=== PATIENT | female | born 1995 | race African-American/Black ===

== ENCOUNTER 2021-03-30 17:59 | Emergency (ER) | payer OTHER ==
[2021-03-30 18:32] VITALS: BP 122/77; PULSE 77; TEMP 98.7; BMI 24.3
[2021-03-30] MEDS ORDERED: LEVONORGESTREL 1.5 MG TABLET (PLAN B ONE-STEP) PO ×2 (18:43→19:33)
[2021-03-30 19:07] LABS: BASO % 0.8 % (0-2.0); EOS % 5.6 % (0-4.5); HEMATOCRIT 38.2 % (32.4-45.2); HEMOGLOBIN 12.5 GM/dL (10.7-15.3); LYMPH % 16.3 % (8-40); MCH 28.5 pg (25.7-33.7); MCHC 32.7 g/dl (32.0-36.0); MEAN CELL VOLUME 86.9 fl (80-96); MEAN PLT VOLUME 8.1 fl (7.5-11.1); NEUT % 68.3 % (42.8-82.8); PLATELET COUNT 273 K/MM3 (134-434); RDW 14.4 % (11.6-15.6); WHITE BLOOD COUNT 5.9 K/mm3 (4.0-10.0)
[2021-03-30 19:09] LABS: PH,URINE 8.5 (5.0-8.0); URINE APPEARANCE CLEAR; URINE BILIRUBIN NEGATIVE (NEGATIVE); URINE COLOR YELLOW; URINE GLUCOSE (UA) NEGATIVE (NEGATIVE); URINE KETONE TRACE (NEGATIVE); URINE LEUK ESTERASE NEGATIVE (NEGATIVE); URINE NITRITE NEGATIVE (NEGATIVE); URINE PROTEIN NEGATIVE (NEGATIVE)
[2021-03-30 19:12] LABS: HCG,QUALITATIVE URINE Negative
[2021-03-30 19:32] LABS: CALCIUM 9.1 mg/dL (8.5-10.1)
[2021-03-30 19:37] LABS: BILIRUBIN,TOTAL 0.3 mg/dL (0.2-1); TOT PROT 7.4 g/dl (6.4-8.2)
[2021-04-01 00:39] LABS: HIV INTERPRETATION NEGATIVE (NEGATIVE)
== END 2021-03-30 20:17 | disposition home or self-care (01) ==
LOC: JERFT 17:59
DX: Z11.3 Encounter for screening for infections with a predominantly sexual mode of transmission (principal)
CPT/HCPCS: 36415; 80053; 80074; 81003; 84703; 85025; 86780; 87086; 87389; 87491; 87591; 87661; 99283-25

== ENCOUNTER 2021-08-09 08:13 | Emergency (ER) | payer OTHER ==
[2021-08-09 08:26] VITALS: BMI 24.7
[2021-08-09 09:56] LABS: BASO % 0.8 % (0-2.0); HEMATOCRIT 36.3 % (32.4-45.2); HEMOGLOBIN 12.2 GM/dL (10.7-15.3); LYMPH % 31.5 % (8-40); MCH 28.3 pg (25.7-33.7); MCHC 33.7 g/dl (32.0-36.0); MEAN CELL VOLUME 84.1 fl (80-96); MEAN PLT VOLUME 7.6 fl (7.5-11.1); MONO % 12.3 % (3.8-10.2); NEUT % 46.4 % (42.8-82.8); PLATELET COUNT 280 10^3/uL (134-434); RBC 4.31 M/mm3 (3.60-5.2); RDW 13.6 % (11.6-15.6)
[2021-08-09 10:13] LABS: CALCIUM 8.2 mg/dL (8.5-10.1)
[2021-08-09 10:14] LABS: ALBUMIN 3.6 g/dl (3.4-5.0); BLOOD UREA NITROGEN 13.5 mg/dL (7-18)
[2021-08-09 10:17] LABS: CREATININE 0.7 mg/dL (0.55-1.3)
[2021-08-09 10:18] LABS: BILIRUBIN,TOTAL 0.4 mg/dL (0.2-1); TOT PROT 7.3 g/dl (6.4-8.2)
[2021-08-09 11:24] VITALS: BP 115/72; PULSE 85; TEMP 98.1
[2021-08-09 12:50] LABS: HIV INTERPRETATION NEGATIVE (NEGATIVE)
[2021-08-09 14:34] LABS: SYPHILIS W/ RPR CONF NON-REACTIVE (NONREACTIVE)
== END 2021-08-09 11:00 | disposition short-term general hospital (02) ==
LOC: JER 08:13
DX: T76.21XA Adult sexual abuse, suspected, initial encounter (principal)
CPT/HCPCS: 36415; 80053; 85025; 86706; 86780; 86803; 87389; 87517; 99285-25; C9803; U0003; U0005